=== PATIENT | male | born 1955 | race African-American/Black ===

== ENCOUNTER 2016-05-16 17:34 | Inpatient (IN) | payer MEDICAID ==
[~2016-05-16] VITALS: Ht 190.5 cm; Wt 180.5 kg
[2016-05-16] MEDS ORDERED: [UNRECOGNIZED DRUG - REMARK] (17:58)
[2016-05-16] MEDS ORDERED: METF500T4 PO (17:58)
[2016-05-16] MEDS ORDERED: CARV3.122 PO (17:58)
[2016-05-16] MEDS ORDERED: WARF2TAB6 PO (17:58)
[2016-05-16 18:27] LABS: BASOPHILS # (AUTO) 0.1 /CMM (0.0-0.2); BASOPHILS % (AUTO) 2.2 % (0.0-2.0); DIFF TOTAL % 100 %; EOSINOPHILS % (AUTO) 1.2 % (0.0-6.0); HEMATOCRIT 33 % (39-51); HEMOGLOBIN 10.9 g/dL (13.5-17.5); LYMPHOCYTES # (AUTO) 0.9 /CMM (0.8-4.8); LYMPHOCYTES % (AUTO) 22.5 % (20.0-44.0); MEAN CORPUSCULAR HEMOGLOBIN 27 PG (26.0-33.0); MEAN CORPUSCULAR HGB CONC 33 g/dl (31.0-36.0); MEAN CORPUSCULAR VOLUME 83 fL (80-96); MONOCYTES # (AUTO) 0.4 /CMM (0.1-1.30); NEUTROPHILS # (AUTO) 2.5 /CMM (1.8-8.9); NEUTROPHILS % (AUTO) 64.1 % (43.0-81.0); PLATELET COUNT (AUTO) 151 /CMM (150-450); RED BLOOD CELL COUNT(AUTO) 3.98 MIL/uL (4.5-6.0); WHITE BLOOD COUNT (AUTO) 3.9 K/uL (4.3-11.0)
[2016-05-16 18:39] LABS: ANION GAP 8 (5-14); CARBON DIOXIDE 29 mmol/L (21-32); CHLORIDE 110 mmol/L (98-107); CREATININE 1.2 mg/dL (0.6-1.3); GFR 75 mL/min (>60); GLUCOSE 113 mg/dL (74-106); POTASSIUM 3.5 mmol/L (3.5-5.1); SODIUM SERUM 144 mmol/L (136-145); UREA NITROGEN, BLOOD 14 mg/dL (7-18)
[2016-05-16 18:43] LABS: INR 1.87 (0.87-1.13); PROTHROMBIN TIME 19.6 SECS (9.5-12.7)
[2016-05-16 18:44] LABS: TROPONIN I < 0.017 ng/mL (0.00-0.056)
[2016-05-16 18:51] LABS: LACTIC ACID 1.2 mmol/L (0.4-2.0)
[2016-05-16 18:53] LABS: ALANINE AMINOTRANSFERASE 49 U/L (12-78); ALBUMIN 3.1 g/dL (3.4-5.0); ASPARTATE AMINOTRANSFERASE 20 U/L (15-37); BILIRUBIN,TOTAL 0.3 mg/dL (0.2-1.0); INDIRECT BILIRUBIN 0.3 mg/dL (0.0-1.1); TOTAL PROTEIN, SERUM 7.9 g/dL (6.4-8.2)
[2016-05-16 21:28] LABS: KETONES,URINE Negative (NEGATIVE); LEUKOCYTE ESTERASE ,URINE Moderate (NEGATIVE)
[2016-05-16] MEDS ORDERED: ONDANSETRON HCL/PF 4 MG/2 ML VIAL IVP PRN (21:30)
[2016-05-16] MEDS ORDERED: Z GUARD REMEDY 2 OZ OINT TP PRN (21:30)
[2016-05-16] MEDS ORDERED: MAGNESIUM HYDROXIDE 30 ML UDC PO PRN (21:30)
[2016-05-16] MEDS ORDERED: ZOLPIDEM TARTRATE 5 MG TABLET PO PRN (21:30)
[2016-05-16] MEDS ORDERED: ACETAMINOPHEN 325 MG TABLET PO PRN (21:30)
[2016-05-16] MEDS ORDERED: CARVEDILOL 3.125 MG TABLET PO SCH (21:30)
[2016-05-16] MEDS ORDERED: MAG HYDROX/AL HYDROX/SIMETH 30 ML UDC PO PRN (21:30)
[2016-05-16] MEDS ORDERED: METFORMIN 500 MG TABLET PO SCH (21:30)
[2016-05-16 21:37] LABS: ADD UA MICROSCOPIC YES
[2016-05-16 21:43] LABS: RBC,URINE 2-3/HPF /HPF (0-2)
[2016-05-16 21:44] LABS: ADD URINE CULTURE YES; WBC,URINE TOO NUMEROUS TO COUN /HPF (0-3)
[2016-05-16] MEDS ORDERED: IOHEXOL-350 100 ML VIAL IV ONE (22:04)
[2016-05-16] MEDS ORDERED: IV NS 0.9% 250 ML IV ONE (22:05)
[2016-05-16] MEDS ORDERED: CT SWABBABLE VALVE TRANS SET 1 EA INFUS.SET MC ONE (22:05)
[2016-05-17] VITALS: BP 173/113
[2016-05-17] MEDS ORDERED: FUROSEMIDE 40 MG/4 ML VIAL IV ONE
[2016-05-17] MEDS ORDERED: FUROSEMIDE 40 MG/4 ML VIAL ONE (00:24)
[2016-05-17 04:00] VITALS: BP_SYST 154; BP_DIAS 94; BP_DIAS 96
[2016-05-17 06:56] VITALS: BP 151/107
[2016-05-17 08:02] LABS: BASOPHILS % (AUTO) 0.2 % (0.0-2.0); DIFF TOTAL % 100 %; EOSINOPHILS # (AUTO) 0.1 /CMM (0.0-0.7); EOSINOPHILS % (AUTO) 1.2 % (0.0-6.0); HEMATOCRIT 36 % (39-51); HEMOGLOBIN 11.3 g/dL (13.5-17.5); LYMPHOCYTES # (AUTO) 0.9 /CMM (0.8-4.8); LYMPHOCYTES % (AUTO) 20.1 % (20.0-44.0); MEAN CORPUSCULAR HEMOGLOBIN 27 PG (26.0-33.0); MEAN CORPUSCULAR HGB CONC 32 g/dl (31.0-36.0); MEAN CORPUSCULAR VOLUME 84 fL (80-96); MONOCYTES # (AUTO) 0.5 /CMM (0.1-1.30); MONOCYTES % (AUTO) 11.1 % (2.0-12.0); NEUTROPHILS # (AUTO) 2.9 /CMM (1.8-8.9); NEUTROPHILS % (AUTO) 67.4 % (43.0-81.0); PLATELET COUNT (AUTO) 167 /CMM (150-450); RED BLOOD CELL COUNT(AUTO) 4.22 MIL/uL (4.5-6.0); WHITE BLOOD COUNT (AUTO) 4.4 K/uL (4.3-11.0)
[2016-05-17 08:20] LABS: CALCIUM, SERUM 7.9 mg/dL (8.5-10.1); CREATININE 1.3 mg/dL (0.6-1.3); PHOSPHORUS 2.9 mg/dL (2.5-4.9); POTASSIUM 3.7 mmol/L (3.5-5.1)
[2016-05-17 08:37] LABS: IRON, SERUM 60 ug/dl (50-175); PERCENT SATURATION 18 % (14-33); TOTAL IRON BINDING CAPACITY 327 ug/dl (250-450)
[2016-05-17 08:42] LABS: TROPONIN I < 0.017 ng/mL (0.00-0.056)
[2016-05-17] MEDS ORDERED: Z GUARD REMEDY 2 OZ OINT TP PRN (09:30)
[2016-05-17 10:05] LABS: CHOLESTEROL 161 mg/dL (<200); HDL CHOLESTEROL 49 mg/dL (40-60); LDL 79 mg/dL (0-99); THYROID STIMULATING HORMONE 1.113 uIU/mL (0.358-3.74); TRIGLYCERIDES 179 mg/dL (30-150)
[2016-05-17] MEDS ORDERED: IPRATROPIUM NEB FS 0.5 MG/2.5 ML AMPUL.NEB NEB PRN (13:30)
[2016-05-17] MEDS ORDERED: ALBUTEROL FS 2.5 MG/0.5 ML VIAL.NEB NEB PRN (13:30)
[2016-05-17] MEDS ORDERED: IV SET PRIMARY PUMP SET 1 EA INFUS.SET MC ONE (14:03)
[2016-05-17] MEDS: LEVOFLOXACIN (500MG) 500 MG TABLET PO SCH (14:09)
[2016-05-17] MEDS: PANTOPRAZOLE 40 MG TABLET.DR PO SCH (14:09)
[2016-05-17] MEDS: Magnesium 1GM/D5W 100ML PREMIX 100 ML IV SCH ×2 (14:09→16:21)
[2016-05-17] MEDS: UREA 10% -AHA 4% CREAM 57 GM TUBE TP SCH ×2 (14:16→16:24)
[2016-05-17 16:00] VITALS: BP 170/101
[2016-05-17] MEDS: METFORMIN 500 MG TABLET PO SCH (16:21)
[2016-05-17] MEDS: CARVEDILOL 3.125 MG TABLET PO SCH (16:22)
[2016-05-17] MEDS: RIVAROXABAN 10 MG TABLET PO SCH (16:24)
[2016-05-17] MEDS: Z GUARD REMEDY 2 OZ OINT TP SCH (16:53)
[2016-05-17] MEDS ORDERED: WARFARIN SODIUM 2 MG TABLET PO SCH (17:00)
[2016-05-17] MEDS ORDERED: RIVAROXABAN 10 MG TABLET PO SCH (17:00)
[2016-05-17] MEDS ORDERED: DEXTROSE 50%-WATER 50 ML DISP.SYRIN IV PRN (20:30)
[2016-05-17 20:56] VITALS: BP 160/97
[2016-05-17] MEDS: BLOOD SUGAR DIAGNOSTIC 1 EACH STRIP IN SCH (21:28)
[2016-05-17] MEDS: INSULIN REGULAR, HUMAN 100 UNIT/ML 3 ML VIAL SQ PRN (21:29)
[2016-05-18] MEDS: BLOOD SUGAR DIAGNOSTIC 1 EACH STRIP IN SCH ×4 (06:51→21:27)
[2016-05-18] MEDS: INSULIN REGULAR, HUMAN 100 UNIT/ML 3 ML VIAL SQ PRN ×4 (06:53→21:30)
[2016-05-18 07:24] LABS: BASOPHILS % (AUTO) 0.5 % (0.0-2.0); DIFF TOTAL % 100 %; HEMATOCRIT 37 % (39-51); HEMOGLOBIN 11.5 g/dL (13.5-17.5); LYMPHOCYTES # (AUTO) 1.1 /CMM (0.8-4.8); LYMPHOCYTES % (AUTO) 22.4 % (20.0-44.0); MEAN CORPUSCULAR HEMOGLOBIN 26 PG (26.0-33.0); MEAN CORPUSCULAR HGB CONC 31 g/dl (31.0-36.0); MEAN CORPUSCULAR VOLUME 83 fL (80-96); MONOCYTES # (AUTO) 0.4 /CMM (0.1-1.30); MONOCYTES % (AUTO) 7.9 % (2.0-12.0); NEUTROPHILS # (AUTO) 3.2 /CMM (1.8-8.9); NEUTROPHILS % (AUTO) 68.2 % (43.0-81.0); PLATELET COUNT (AUTO) 167 /CMM (150-450); RED BLOOD CELL COUNT(AUTO) 4.43 MIL/uL (4.5-6.0); WHITE BLOOD COUNT (AUTO) 4.7 K/uL (4.3-11.0)
[2016-05-18 07:38] LABS: ALANINE AMINOTRANSFERASE 48 U/L (12-78); ALBUMIN 3.1 g/dL (3.4-5.0); ANION GAP 12 (5-14); ASPARTATE AMINOTRANSFERASE 22 U/L (15-37); BILIRUBIN,TOTAL 0.4 mg/dL (0.2-1.0); CALCIUM, SERUM 8.2 mg/dL (8.5-10.1); CARBON DIOXIDE 29 mmol/L (21-32); CHLORIDE 105 mmol/L (98-107); CREATININE 1.4 mg/dL (0.6-1.3); GFR 63 mL/min (>60); GLUCOSE 198 mg/dL (74-106); POTASSIUM 3.8 mmol/L (3.5-5.1); SODIUM SERUM 142 mmol/L (136-145); TOTAL PROTEIN, SERUM 8.1 g/dL (6.4-8.2); UREA NITROGEN, BLOOD 15 mg/dL (7-18)
[2016-05-18 07:39] LABS: TROPONIN I < 0.017 ng/mL (0.00-0.056)
[2016-05-18 08:00] VITALS: BP 168/114
[2016-05-18 08:11] LABS: VIT D, 25-HYDROXY 22.6 ng/mL (30.0-100.0)
[2016-05-18] MEDS: PANTOPRAZOLE 40 MG TABLET.DR PO SCH (08:30)
[2016-05-18] MEDS: predniSONE 10 MG TABLET PO SCH (08:30)
[2016-05-18] MEDS: METFORMIN 500 MG TABLET PO SCH ×2 (08:30→17:00)
[2016-05-18] MEDS: CARVEDILOL 3.125 MG TABLET PO SCH ×2 (08:31→16:13)
[2016-05-18] MEDS: Z GUARD REMEDY 2 OZ OINT TP SCH ×2 (08:33→16:14)
[2016-05-18] MEDS: UREA 10% -AHA 4% CREAM 57 GM TUBE TP SCH ×2 (08:33→16:13)
[2016-05-18] MEDS: LEVOFLOXACIN (500MG) 500 MG TABLET PO SCH (13:48)
[2016-05-18 16:00] VITALS: BP_SYST 160; BP_DIAS 100; BP_DIAS 103
[2016-05-18] MEDS: RIVAROXABAN 10 MG TABLET PO SCH (16:13)
[2016-05-18] MEDS: LISINOPRIL (10MG) 10 MG TABLET PO SCH (17:50)
[2016-05-18 20:00] VITALS: BP_SYST 160; BP_SYST 181; BP_DIAS 85; BP_DIAS 90
[2016-05-19] MEDS: HYDROCODONE/APAP 5/325MG 1 EACH TABLET PO PRN ×2 (01:26→06:07)
[2016-05-19] MEDS: BLOOD SUGAR DIAGNOSTIC 1 EACH STRIP IN SCH ×2 (05:22→12:11)
[2016-05-19] MEDS ORDERED: ATOR40TA PO (07:48)
[2016-05-19] MEDS ORDERED: FURO40TA5 PO (07:48)
[2016-05-19] MEDS ORDERED: PYRI25TA4 PO (07:48)
[2016-05-19] MEDS ORDERED: ACET160T6 PO (07:48)
[2016-05-19] MEDS ORDERED: AMIO200T7 PO (07:48)
[2016-05-19] MEDS ORDERED: KRIL500C PO (07:48)
[2016-05-19] MEDS ORDERED: LISI10TA5 PO (07:48)
[2016-05-19] MEDS ORDERED: MULT1TAB73 PO (07:48)
[2016-05-19] MEDS ORDERED: WARF5TAB6 PO (07:48)
[2016-05-19] MEDS ORDERED: GLIP5TAB13 PO (07:48)
[2016-05-19] MEDS ORDERED: CARV12.52 PO (07:48)
[2016-05-19 08:00] VITALS: BP 173/110
[2016-05-19] MEDS: PANTOPRAZOLE 40 MG TABLET.DR PO SCH (08:12)
[2016-05-19] MEDS: METFORMIN 500 MG TABLET PO SCH (08:12)
[2016-05-19] MEDS: predniSONE 10 MG TABLET PO SCH (08:12)
[2016-05-19] MEDS: hydrALAZINE HCL 50 MG TABLET PO SCH ×2 (08:13→12:09)
[2016-05-19] MEDS: LISINOPRIL (10MG) 10 MG TABLET PO SCH (08:13)
[2016-05-19] MEDS: UREA 10% -AHA 4% CREAM 57 GM TUBE TP SCH (08:16)
[2016-05-19] MEDS: Z GUARD REMEDY 2 OZ OINT TP SCH ×2 (08:16→12:10)
[2016-05-19] MEDS ORDERED: ISOSORBIDE DINITRATE (20MG) 20 MG TABLET PO SCH (09:00)
[2016-05-19] MEDS ORDERED: CARVEDILOL 12.5 MG TABLET PO SCH (09:00)
[2016-05-19 09:02] LABS: BASOPHILS % (AUTO) 0.1 % (0.0-2.0); DIFF TOTAL % 100 %; EOSINOPHILS % (AUTO) 0.4 % (0.0-6.0); HEMATOCRIT 36 % (39-51); HEMOGLOBIN 11.6 g/dL (13.5-17.5); LYMPHOCYTES # (AUTO) 1.1 /CMM (0.8-4.8); LYMPHOCYTES % (AUTO) 16.3 % (20.0-44.0); MEAN CORPUSCULAR HEMOGLOBIN 27 PG (26.0-33.0); MEAN CORPUSCULAR HGB CONC 32 g/dl (31.0-36.0); MEAN CORPUSCULAR VOLUME 83 fL (80-96); MONOCYTES # (AUTO) 0.4 /CMM (0.1-1.30); MONOCYTES % (AUTO) 6.6 % (2.0-12.0); NEUTROPHILS % (AUTO) 76.6 % (43.0-81.0); PLATELET COUNT (AUTO) 181 /CMM (150-450); RED BLOOD CELL COUNT(AUTO) 4.38 MIL/uL (4.5-6.0); WHITE BLOOD COUNT (AUTO) 6.5 K/uL (4.3-11.0)
[2016-05-19 09:42] LABS: CALCIUM, SERUM 8.3 mg/dL (8.5-10.1); CREATININE 1.2 mg/dL (0.6-1.3); POTASSIUM 3.7 mmol/L (3.5-5.1)
[2016-05-19 09:43] LABS: INR 1.6 (0.87-1.13); PROTHROMBIN TIME 17.4 SECS (9.5-12.7)
[2016-05-19 11:10] VITALS: BP 128/70
[2016-05-19] MEDS: INSULIN REGULAR, HUMAN 100 UNIT/ML 3 ML VIAL SQ PRN (12:08)
[2016-05-19 12:09] VITALS: BP 136/78
[2016-05-19] MEDS: LEVOFLOXACIN (500MG) 500 MG TABLET PO SCH (13:40)
[2016-05-20 10:29] LABS: *SPE ALBUMIN 3.7 g/dL (2.9-4.4)
== END 2016-05-19 13:49 | disposition home or self-care (01) | DRG 140 ==
LOC: ER 17:39 → MED 20:58 → TELE 23:35 → MED 05-17 10:10
PROVIDERS: ADMIT Family Medicine; ATTEND Family Medicine
DX: J44.1 Chronic obstructive pulmonary disease with (acute) exacerbation (principal); I50.9 Heart failure, unspecified; E44.1 Mild protein-calorie malnutrition; I10 Essential (primary) hypertension; E11.9 Type 2 diabetes mellitus without complications; D64.9 Anemia, unspecified; Z79.01 Long term (current) use of anticoagulants; E78.5 Hyperlipidemia, unspecified; G47.30 Sleep apnea, unspecified; Z87.891 Personal history of nicotine dependence; Z86.718 Personal history of other venous thrombosis and embolism; E66.01 Morbid (severe) obesity due to excess calories; G47.33 Obstructive sleep apnea (adult) (pediatric); I89.0 Lymphedema, not elsewhere classified; I87.8 Other specified disorders of veins; E78.00 Pure hypercholesterolemia, unspecified; J98.11 Atelectasis; Z68.42 Body mass index [BMI] 45.0-49.9, adult
CPT/HCPCS: 36415; 71010-TC; 80048-TC; 80053-TC; 80061-TC; 80076-TC; 81000-TC; 82306; 82728-TC; 82962-TC; 83540-TC; 83605-TC; 83735-TC; 83880; 84100-TC; 84155; 84165; 84439-TC; 84443-TC; 84484-TC; 85025-TC; 85610-TC; 85730-TC; 87040-TC; 87081-TC; 87086-TC; 87186-TC; 93307-TC; 93970-TC; 97001-TC; A4606; J1815; J1940; J3475; J7050; Q9967; Z7610

== ENCOUNTER 2016-07-16 20:17 | Emergency (ER) | payer MEDICAID ==
[~2016-07-16] VITALS: Ht 190.5 cm; Wt 176.9 kg
[~2016-07-16 20:17] MED LIST: ACET160T6 PO; AMIO200T7 PO; ATOR40TA PO; CARV12.52 PO; FURO40TA5 PO; GLIP5TAB13 PO; KRIL500C PO; LISI10TA5 PO; METF500T4 PO; MULT1TAB73 PO; PYRI25TA4 PO; WARF5TAB6 PO; [UNRECOGNIZED DRUG - REMARK]
--- NOTE | 2016-07-16 20:30 | NUR ---
PT BIB RA C/O R KNEE SWELLING AND PAIN. PT HAS HX OF JOINT EFFUSIONS, LAST DRAINED 1 WK AGO. PT STATES "THE PAIN WAS TOO BAD FOR ME TO GET TO MY DOCTORS OFFICE". UNABLE TO AMBULATE. NO OTHER COMPLAINTS. RESP EVEN UNLABORED. IN ER BED 11.
[2016-07-16] MEDS ORDERED: ONDANSETRON HCL/PF 4 MG/2 ML VIAL ONE (20:52)
[2016-07-16] MEDS ORDERED: MORPHINE SULFATE INJ 4 MG/ML DISP.SYRIN ONE (20:52)
[2016-07-16] MEDS ORDERED: MORPHINE SULFATE INJ 2 MG/ML DISP.SYRIN IV ONE (21:00)
[2016-07-16] MEDS ORDERED: ONDANSETRON HCL/PF 4 MG/2 ML VIAL IVP ONE (21:00)
[2016-07-16] MEDS ORDERED: LIDOCAINE 1%-EPI 1:100,000 20 ML VIAL TP ONE (21:00)
[2016-07-16 21:02] LABS: BASOPHILS # (AUTO) 0.1 /CMM (0.0-0.2); BASOPHILS % (AUTO) 1.1 % (0.0-2.0); EOSINOPHILS % (AUTO) 0.6 % (0.0-6.0); HEMATOCRIT 34 % (39-51); HEMOGLOBIN 10.8 g/dL (13.5-17.5); LYMPHOCYTES # (AUTO) 1.2 /CMM (0.8-4.8); LYMPHOCYTES % (AUTO) 21.1 % (20.0-44.0); MEAN CORPUSCULAR HEMOGLOBIN 26 PG (26.0-33.0); MEAN CORPUSCULAR HGB CONC 31 g/dl (31.0-36.0); MEAN CORPUSCULAR VOLUME 83 fL (80-96); MONOCYTES # (AUTO) 0.6 /CMM (0.1-1.30); MONOCYTES % (AUTO) 10.9 % (2.0-12.0); NEUTROPHILS # (AUTO) 3.9 /CMM (1.8-8.9); NEUTROPHILS % (AUTO) 66.3 % (43.0-81.0); PLATELET COUNT (AUTO) 215 /CMM (150-450); RDW COEFFICIENT OF VARIATION 15.7 (11.5-15.0); RED BLOOD CELL COUNT(AUTO) 4.14 MIL/uL (4.5-6.0); WHITE BLOOD COUNT (AUTO) 5.9 K/uL (4.3-11.0)
[2016-07-16 21:05] LABS: CALCIUM, SERUM 8.8 mg/dL (8.5-10.1); CREATININE 1.5 mg/dL (0.6-1.3)
[2016-07-16 21:17] LABS: INR 1.52 (0.87-1.13); PROTHROMBIN TIME 16.7 SECS (9.5-12.7)
--- NOTE | 2016-07-16 21:18 | NUR ---
MD AT BEDSIDE FOR JOINT ASPIRATION. UNABLE TO OBTAIN IV ACCESS AT THIS TIME; PER GORAN GAMBOA TO ADMIN 4MG MORPHINE IM. PT REPORTS HE HAS HAD MORPHINE BEFORE WITHOUT NAUSEA; WILL MONITOR FOR NAUSEA. OK PER MD TO HOLD ZOFRAN AT THIS TIME.
--- NOTE | 2016-07-16 22:16 | NUR ---
RESTING COMFORTABLY IN BED. MD AT BEDSIDE FOR REEVAL
[2016-07-16] MEDS ORDERED: CLONIDINE HCL 0.1 MG TABLET ONE (22:18)
[2016-07-16] MEDS ORDERED: MORPHINE SULFATE INJ 10 MG/ML DISP.SYRIN ONE (22:22)
--- NOTE | 2016-07-16 22:23 | NUR ---
CLONIDINE 0.2MG PO ADMINISTERED PER VERBAL ORDER BY DR BUSBY FOR BP 199/109
[2016-07-16] MEDS ORDERED: MORPHINE SULFATE INJ 4 MG/ML DISP.SYRIN IM ONE (22:30)
[2016-07-16] MEDS ORDERED: CLONIDINE HCL 0.1 MG TABLET PO ONE (22:30)
--- NOTE | 2016-07-16 22:38 | NUR ---
[facility] CALLED FOR TRANSPORT HOME; ETA 45 MINUTES
--- NOTE | 2016-07-16 23:38 | NUR ---
Patient discharged to home in stable condition. Written and verbal after care instructions given. Patient verbalizes understanding of instruction. DISCHARGED WITH [facility].
[2016-07-16 23:39] VITALS: BP 158/89
== END 2016-07-16 23:39 | disposition home or self-care (01) ==
LOC: ER 20:21
DX: M25.561 Pain in right knee (principal); M54.31 Sciatica, right side; E11.9 Type 2 diabetes mellitus without complications; E66.9 Obesity, unspecified; E78.00 Pure hypercholesterolemia, unspecified; F32.9 Major depressive disorder, single episode, unspecified; I48.91 Unspecified atrial fibrillation; I11.0 Hypertensive heart disease with heart failure; I50.9 Heart failure, unspecified; J43.9 Emphysema, unspecified; I73.9 Peripheral vascular disease, unspecified; M10.9 Gout, unspecified; Z79.01 Long term (current) use of anticoagulants; Z87.891 Personal history of nicotine dependence; Z86.718 Personal history of other venous thrombosis and embolism
CPT/HCPCS: 36415; 73564; 80048; 85025; 85730; 96372 ×2; 99285; A4606; A6403; J2270 ×2; J2405; Z7610

== ENCOUNTER 2016-10-11 11:31 | Emergency (ER) | payer BC, OTHER ==
[~2016-10-11] VITALS: Ht 188 cm; Wt 165.1 kg
--- NOTE | 2016-10-11 11:35 | NUR ---
PT BIB [facility] FROM HOME FOR R LEG PAIN DVT, TAKING COUMADIN. PT HAS DRY SCALY SKIN ON BLE. ABDOMEN AND BACK DISCOLORATION. DENIES SOB. GOWNED PT . PLACED ON [facility]. AWAITING MD ORDER
--- NOTE | 2016-10-11 11:40 | NUR ---
DR RODRÍGUEZ AT BEDSIDE FOR EVAL
--- NOTE | 2016-10-11 11:50 | NUR ---
MARILOU #20 IV ACCESS.
[2016-10-11] MEDS ORDERED: HYDROMORPHONE 1 MG/1 ML DISP.SYRIN ONE (11:55)
[2016-10-11] MEDS ORDERED: APIXABAN 5 MG TABLET PO SCH ×2 (12:00→12:30)
[2016-10-11] MEDS ORDERED: HYDROMORPHONE 1 MG/1 ML DISP.SYRIN IV ONE (12:00)
--- NOTE | 2016-10-11 12:19 | NUR ---
CALLED EZEKIEL, PROTOTYPE ENGINEER, TO COME SEE PT
--- NOTE | 2016-10-11 12:28 | NUR ---
ROMIE received a call from Barbara in ED informing SW that pt. would like to speak with her. ROMIE met with pt. bedside. Pt. is alert and oriented x4. Pt. is friendly. Pt. informed SW he was recently released from [facility] on FridayOctober 09. Pt. receives medical care from [facility] and would like to go to the [place] for follow up via [facility] transportation. ROMIE informed pt. that he would have to schedule [facility] services a day prior to going to his destination. Pt. understood. Pt. requested for assistance with transportation to his get home. ROMIE arranged for taxi transportation [place] [address] [place]. ROMIE updated pt's RN Vipin regarding discharge plan.
--- NOTE | 2016-10-11 12:28 | NUR ---
SCRAP DEALER AT BEDSIDE FOR EVAL
[2016-10-11 12:29] VITALS: BP 143/81
--- NOTE | 2016-10-11 12:30 | NUR ---
IV removed. Catheter intact and site benign. Pressure and 4x4 applied to site. No bleeding noted.
--- NOTE | 2016-10-11 12:30 | NUR ---
Patient discharged to home in stable condition. Written and verbal after care instructions given. Patient verbalizes understanding of instruction.
== END 2016-10-11 12:42 | disposition home or self-care (01) ==
LOC: ER 11:34
DX: I82.401 Acute embolism and thrombosis of unspecified deep veins of right lower extremity (principal); M79.604 Pain in right leg; E66.9 Obesity, unspecified; E78.00 Pure hypercholesterolemia, unspecified; I87.8 Other specified disorders of veins; I10 Essential (primary) hypertension; I73.9 Peripheral vascular disease, unspecified; M10.9 Gout, unspecified; Z79.01 Long term (current) use of anticoagulants; Z86.711 Personal history of pulmonary embolism; Z87.891 Personal history of nicotine dependence
CPT/HCPCS: 96374; 99284; A4606; J1170; Z7610

== ENCOUNTER 2016-12-21 23:36 | Emergency (ER) | payer MEDICAID, OTHER ==
[~2016-12-21] VITALS: Ht 182.9 cm; Wt 171.0 kg
--- NOTE | 2016-12-21 23:40 | NUR ---
TO BED 1 BIB PARAMEDICS C/O SOB X1 DAY, LUNG SOUNDS CLEAR BILATERALLY ON AUSCULTATION. PT AAOX4 NO ACUTE DISTRESS NOTED, RESP EVEN AND UNLABORED. PT ABLE TO SPEAK IN FULL SENTENCES. PLACE PT ON CARDIAC MONITORING, CONTINUOUS POX. ER MD AT BEDSIDE TO EVAL PT WITH ORDERS RECEIVED. WILL CARRY OUT ORDERS.
--- NOTE | 2016-12-21 23:49 | NUR ---
STARTED SL 18G TO L HAND 18G, BLOOD DRAWN AND SENT TO LAB.
[2016-12-22] MEDS ORDERED: ASPIRIN 81 MG TAB.CHEW PO ONE
[2016-12-22 00:08] LABS: BASOPHILS % (AUTO) 0.7 % (0.0-2.0); EOSINOPHILS # (AUTO) 0.1 /CMM (0.0-0.7); EOSINOPHILS % (AUTO) 1.1 % (0.0-6.0); HEMATOCRIT 32 % (39-51); LYMPHOCYTES # (AUTO) 1.4 /CMM (0.8-4.8); LYMPHOCYTES % (AUTO) 23.9 % (20.0-44.0); MEAN CORPUSCULAR HEMOGLOBIN 26 PG (26.0-33.0); MEAN CORPUSCULAR HGB CONC 32 g/dl (31.0-36.0); MEAN CORPUSCULAR VOLUME 82 fL (80-96); MONOCYTES # (AUTO) 0.5 /CMM (0.1-1.30); NEUTROPHILS # (AUTO) 3.8 /CMM (1.8-8.9); NEUTROPHILS % (AUTO) 66.3 % (43.0-81.0); PLATELET COUNT (AUTO) 203 /CMM (150-450); RDW COEFFICIENT OF VARIATION 17.5 (11.5-15.0); RED BLOOD CELL COUNT(AUTO) 3.84 MIL/uL (4.5-6.0); WHITE BLOOD COUNT (AUTO) 5.7 K/uL (4.3-11.0)
[2016-12-22 00:19] LABS: CALCIUM, SERUM 7.9 mg/dL (8.5-10.1); CARBON DIOXIDE 27 mmol/L (21-32); CHLORIDE 108 mmol/L (98-107); CREATININE 1.6 mg/dL (0.6-1.3); GLUCOSE 87 mg/dL (74-106); POTASSIUM 3.2 mmol/L (3.5-5.1); SODIUM SERUM 143 mmol/L (136-145); UREA NITROGEN, BLOOD 19 mg/dL (7-18)
[2016-12-22 00:21] LABS: INR 1.99 (0.87-1.13); PROTHROMBIN TIME 22.2 SECS (9.5-12.7)
[2016-12-22 00:27] LABS: TROPONIN I < 0.017 ng/mL (0.00-0.056)
[2016-12-22 00:32] LABS: B-TYPE NATRIURETIC PEPTIDE 99 PG/ML (0-125)
--- NOTE | 2016-12-22 00:53 | NUR ---
ER TALKING TO DR. GUIDRY REGARDING PT ADMISSION.
[2016-12-22] MEDS ORDERED: POTASSIUM CHLORIDE 20 MEQ TAB.PRT.SR PO ONE ×2 (01:00→01:04)
--- NOTE | 2016-12-22 01:01 | NUR ---
REPORT CALLED TO BUSINESS OFFICE MANAGER JEM. WILL TRANSPORT PT VIA [employer] [employer].
[2016-12-22] MEDS ORDERED: ASPIRIN 81 MG TAB.CHEW ONE (01:04)
[2016-12-22] MEDS ORDERED: IV NS 0.9% 1,000 ML IV PRN (01:23)
[2016-12-22] MEDS ORDERED: hydrALAZINE HCL 10 MG TABLET PO PRN (01:30)
[2016-12-22] MEDS ORDERED: HYDROCODONE/APAP 5/325MG 1 EACH TABLET PO PRN (01:30)
[2016-12-22] MEDS ORDERED: Z GUARD REMEDY 2 OZ OINT TP PRN (01:30)
[2016-12-22] MEDS ORDERED: MAG HYDROX/AL HYDROX/SIMETH 30 ML UDC PO PRN (01:30)
[2016-12-22] MEDS ORDERED: ZOLPIDEM TARTRATE 5 MG TABLET PO PRN (01:30)
[2016-12-22] MEDS ORDERED: MORPHINE SULFATE INJ 2 MG/ML DISP.SYRIN IV PRN (01:30)
[2016-12-22] MEDS ORDERED: MAGNESIUM HYDROXIDE 30 ML UDC PO PRN (01:30)
[2016-12-22] MEDS ORDERED: ONDANSETRON HCL/PF 4 MG/2 ML VIAL IVP PRN (01:30)
[2016-12-22] MEDS ORDERED: ACETAMINOPHEN 325 MG TABLET PO PRN (01:30)
--- NOTE | 2016-12-22 01:40 | NUR ---
SPOKE TO RONAK PROFESSOR OF GRAPHIC DESIGN FOR [facility] REGARDING PT TRANSFER. INFO PROVIDED REQUESTED. AWAITING CALL BACK FROM DR. GONZALEZ.
--- NOTE | 2016-12-22 02:01 | NUR ---
ER SPOKE TO DR. GONZALEZ REGARDING PT.
--- NOTE | 2016-12-22 02:38 | NUR ---
PT ASLEEP, NO ACUTE DISRTESS NOTED, RESP EVEN AND UNLABORED. NO PAIN OR DISCOMFORT NOTED. CALL LIGHT WITHIN REACH.
--- NOTE | 2016-12-22 02:59 | NUR ---
Pt accepted to [facility] by Dr. Christian. Room 936-1. # for report [phone]
--- NOTE | 2016-12-22 04:15 | NUR ---
Call from [facility] for transport [phone]
--- NOTE | 2016-12-22 05:09 | NUR ---
pt aaox4 no acute distress noted, resp even and unlabored. call light within reach.
--- NOTE | 2016-12-22 06:32 | NUR ---
pt asleep, no acute distress noted, resp even and unlabored. call light within reach. will continue to monitor pt closely.
--- NOTE | 2016-12-22 07:12 | NUR ---
REPORT GIVEN TO AM SHIFT MELVIN LANDAVERDE.
--- NOTE | 2016-12-22 07:24 | NUR ---
[facility] AT BEDSIDE REPORT GIVEN TO [employer] [employer] GENA.
[2016-12-22 07:25] VITALS: BP 156/98
[2016-12-22] MEDS ORDERED: PANTOPRAZOLE 40 MG TABLET.DR PO SCH (07:30)
--- NOTE | 2016-12-22 07:31 | NUR ---
REPORT CALLED TO [facility] MELVIN MARY.
[2016-12-22] MEDS ORDERED: ASPIRIN 81 MG TAB.CHEW PO SCH (09:00)
[2016-12-22] MEDS ORDERED: ATORVASTATIN 40 MG TABLET PO SCH (22:00)
== END 2016-12-22 07:34 | disposition short-term general hospital (02) ==
LOC: ER 23:40
DX: R06.02 Shortness of breath (principal); E87.6 Hypokalemia; I10 Essential (primary) hypertension; I50.9 Heart failure, unspecified; E78.5 Hyperlipidemia, unspecified; E78.00 Pure hypercholesterolemia, unspecified; Z87.891 Personal history of nicotine dependence
CPT/HCPCS: 36415 ×2; 71010; 80048; 83036; 83880; 84484; 85025; 85730; 93005; 99285; A4606; Z7610